=== PATIENT | female | born 1980 | race Two or more races ===

== ENCOUNTER 2021-12-17 18:05 | Emergency (ER) | payer OTHER ==
[~2021-12-17] VITALS: Ht 157.5 cm; Wt 79.4 kg
== END 2021-12-17 21:39 | disposition home or self-care (01) ==
LOC: ER 18:05
DX: A09 Infectious gastroenteritis and colitis, unspecified (principal)

== ENCOUNTER 2024-06-25 06:39 | Emergency (ER) | payer OTHER ==
[~2024-06-25] VITALS: Ht 157.5 cm; Wt 78.5 kg
[2024-06-25] MEDS ORDERED: HYOSCYAMINE SULFATE 0.125 MG TAB.SUBL SL ONE (08:45)
[2024-06-25] MEDS ORDERED: HYOSCYAMINE SULFATE 0.125 MG TAB.SUBL ONE (08:57)
[2024-06-25 09:19] LABS: HEMATOCRIT 39.3 % (36.0-45.00); HEMOGLOBIN 13.7 g/dL (12.0-15.00); MEAN CELL VOLUME 83.5 fL (80.00-100.00); MEAN CORPUSCULAR HGB CONC 34.8 g/dl (32.0-36.0); PLATELET COUNT 272 K/uL (150-450); RED BLOOD COUNT 4.71 M/uL (4.00-6.00); RED CELL DISTRIBUTION WIDTH 13.1 % (11.5-14.5)
[2024-06-25 09:39] LABS: CALCIUM 9.5 mg/dL (8.5-10.1); CREATININE SERUM 0.61 mg/dL (0.55-1.02); GFR 105.59; POTASSIUM 4.26 mEq/L (3.5-5.1)
[2024-06-25 10:32] LABS: PH,URINE 6.5 (5.0-8.0); URINE APPEARANCE Clear; URINE BILIRRUBIN Negative (NEGATIVE); URINE BLOOD Negative; URINE COLOR Yellow; URINE GLUCOSE Negative (NEGATIVE); URINE KETONE Negative (NEGATIVE); URINE LEUKOCYTE Negative; URINE NITRATE Negative; URINE PROTEIN Negative (NEGATIVE); URINE UROBILINOGEN 0.2 E.U./dl
[2024-06-25 10:36] LABS: URINE BACTERIA 1001.2 uL (0.0-1933); URINE EPITHELIAL CELLS 6.6 uL (0.0-38.8); URINE RBC 9.5 uL (0.0-20.8); URINE WBC 3.4 uL (0.0-23.2)
[2024-06-25 10:49] LABS: URINE CAST 0.14 uL (0.0-1.40)
== END 2024-06-25 11:59 | disposition home or self-care (01) ==
LOC: ER 06:40
PROVIDERS: General Practice
DX: R10.11 Right upper quadrant pain (principal)